=== PATIENT | female | born 1950 | race Caucasian/White ===

== ENCOUNTER 2017-05-01 12:50 | Emergency (ER) | payer OTHER ==
--- NOTE | 2017-05-01 13:21 | EDM.PDOC ---
ED HPI GENERAL MEDICAL PROBLEM - General Chief Complaint: Abdominal Pain Stated Complaint: AMBULANCE Time Seen by Provider: 05/01/17 13:00 - History of Present Illness INITIAL COMMENTS - FREE TEXT/NARRATIVE: HISTORY AND PHYSICAL: History of present illness: Is a 66-year-old white female presents with a concern of right-sided abdominal pain this is in her right upper quadrant and hypogastric she has had multiple episodes of this discomfort and has had extensive workup including HIDA scan CT abdomen and pelvis that have all been unremarkable patient is markedly improved on arrival Review of systems: As per history of present illness and below otherwise all systems reviewed and negative. Past medical history: As per history of present illness and as reviewed below otherwise noncontributory. Surgical history: As per history of present illness and as reviewed below otherwise noncontributory. Social history: No reported history of drug or alcohol abuse. Family history: As per history of present illness and as reviewed below otherwise noncontributory. Physical exam: HEENT: Atraumatic, normocephalic, pupils reactive, negative for conjunctival pallor or scleral icterus, mucous membranes moist, throat clear, neck supple, nontender, trachea midline. Lungs: Clear to auscultation, breath sounds equal bilaterally, chest nontender. Heart: S1S2, regular, negative for clicks, rubs, or JVD. Abdomen: Soft, nondistended, no localized tenderness. Negative for masses or hepatosplenomegaly. Negative for costovertebral tenderness. Pelvis: Stable nontender. Genitourinary: Deferred. Rectal: Deferred. Extremities: Atraumatic, negative for cords or calf pain. Neurovascular unremarkable. Neuro: Awake, alert, oriented. Cranial nerves II through XII unremarkable. Cerebellum unremarkable. Motor and sensory unremarkable throughout. Exam nonfocal. Diagnostics: CBC CMP amylase lipase UA Therapeutics: None Impression: #1 chronic intermittent abdominal pain Definitive disposition and diagnosis as appropriate pending reevaluation and review of above. Right Upper Abdomen Pain Score (Numeric/FACES): 1 - Related Data Allergies Allergy/AdvReac Type Severity Reaction Status Date / Time meperidine [From Demerol] Allergy Vomiting Verified 05/01/17 13:07 Tetanus Vaccines and Toxoid Allergy Other Verified 05/01/17 13:07 Home Meds: Home Meds Furosemide [Lasix] 20 mg PO DAILY 08/31/17 [History] ED ROS GENERAL - Review of Systems Review Of Systems: ROS reveals no pertinent complaints other than HPI. ED EXAM, GENERAL - Physical Exam Exam: See Below (See dictation) Course - Vital Signs Text/Narrative:: Lengthy discussion with patient regarding chronic intermittent nature of this and to date unremarkable diagnostics at this time patient does agree to lab work she declines any imaging states she has markedly improved and is eager for a referral so as to review implications including empiric cholecystectomy and/ or GI consultation Last Recorded V/S: Last Vital Signs Temp 36.3 C 05/01/17 12:58 Pulse 71 05/01/17 12:58 Resp 20 05/01/17 12:58 BP 133/87 05/01/17 12:58 Pulse Ox 95 05/01/17 12:58 - Orders/Labs/Meds Orders: Active Orders 24 hr Category Date Time Status URINALYSIS W/MICROSCOPIC [UA W/MICROSCOPIC] [URIN] Stat Lab 05/01/17 13:05 Uncollected Labs: Laboratory Tests 05/01/17 05/01/17 Range/Units 13:15 13:15 WBC 6.20 (4.0-11.0) K/uL RBC 4.64 (4.30-5.90) M/uL Hgb 13.8 (12.0-16.0) g/dL Hct 40.4 (36.0-46.0) % MCV 87.1 (80.0-98.0) fL MCH 29.7 (27.0-32.0) pg MCHC 34.2 (31.0-37.0) g/dL RDW Std Deviation 42.1 (28.0-62.0) fl RDW Coeff of Mariano 13 (11.0-15.0) % Plt Count 156 (150-400) K/uL MPV 8.80 (7.40-12.00) fL Neut % (Auto) 68.3 (48.0-80.0) % Lymph % (Auto) 24.4 (16.0-40.0) % [place] % (Auto) 5.2 (0.0-15.0) % Eos % (Auto) 1.9 (0.0-7.0) % Baso % (Auto) 0.2 (0.0-1.5) % Neut # (Auto) 4.2 (1.4-5.7) K/uL Lymph # (Auto) 1.5 (0.6-2.4) K/uL [place] # (Auto) 0.3 (0.0-0.8) K/uL Eos # (Auto) 0.1 (0.0-0.7) K/uL Baso # (Auto) 0.0 (0.0-0.1) K/uL Nucleated RBC % 0.0 /100WBC Nucleated RBCs # 0 K/uL Sodium 142 (136-146) mmol/L Potassium 3.7 (3.5-5.1) mmol/L Chloride 107 (98-110) mmol/L Carbon Dioxide 24 (21-31) mmol/L BUN 21 (6.0-23.0) mg/dL Creatinine 1.0 (0.6-1.5) mg/dL Est Cr Clr Drug Dosing 56.58 mL/min Estimated GFR (MDRD) 55.6 ml/min Glucose 91 (60-110) mg/dL Calcium 9.4 (8.8-10.8) mg/dL Total Bilirubin 0.3 (0.1-1.5) mg/dL AST 14 (5-40) IU/L ALT 22 (8-54) IU/L Alkaline Phosphatase 90 (40-150) Total Protein 6.5 (6.0-8.0) g/dL Albumin 4.0 (3.4-4.8) g/dL Globulin 2.5 (2.0-3.5) g/dL Albumin/Globulin Ratio 1.6 (1.3-2.8) Amylase 41 (10-90) U/L Lipase 14 (7-80) U/L Departure - Departure Time of Disposition: 14:23 Disposition: Home, Self-Care 01 Condition: Good Clinical Impression: Abdominal pain - Discharge Information Forms: ED Department Discharge Additional Instructions: The following information is given to patients seen in the emergency department who are being discharged to home. This information is to outline your options for follow-up care. We provide all patients seen in our emergency department with a follow-up referral. The need for follow-up, as well as the timing and circumstances, are variable depending upon the specifics of your emergency department visit. If you don't have a primary care physician on staff, we will provide you with a referral. We always advise you to contact your personal physician following an emergency department visit to inform them of the circumstance of the visit and for follow-up with them and/or the need for any referrals to a consulting specialist. The emergency department will also refer you to a specialist when appropriate. This referral assures that you have the opportunity for followup care with a specialist. All of these measure are taken in an effort to provide you with optimal care, which includes your followup. Under all circumstances we always encourage you to contact your private physician who remains a resource for coordinating your care. When calling for followup care, please make the office aware that this follow-up is from your recent emergency room visit. If for any reason you are refused follow-up, please contact the [facility] emergency department at and asked to speak to the emergency department charge nurse. [facility] Specialty Care - General Surgery Professional [address], [address] [place] [address] Follow-up primary medical doctor and general surgery as discussed call to schedule routine appointments return as needed as discussed - My Orders Last 24 Hours: My Active Orders 05/01/17 13:05 URINALYSIS W/MICROSCOPIC [UA W/MICROSCOPIC] [URIN] Stat - Assessment/Plan Last 24 Hours: My Active Orders 05/01/17 13:05 URINALYSIS W/MICROSCOPIC [UA W/MICROSCOPIC] [URIN] Stat
[2017-05-01 14:40] VITALS: BP 124/78
== END 2017-05-01 14:37 | disposition home or self-care (01) ==
LOC: EDBD 12:50 → MERGE 12:50 → MW.ED 12:50
DX: R10.11 Right upper quadrant pain (principal); Z88.8 Allergy status to other drugs, medicaments and biological substances
CPT/HCPCS: 36415; 80053; 81001; 82150; 83690; 85025; 99283; 99284

== ENCOUNTER 2020-05-01 15:51 | Emergency (ER) | payer MEDICARE, OTHER ==
[2020-05-01] MEDS ORDERED: Sodium Chloride 0.9% 10 ML Syringe FLUSH PRN (15:56)
[2020-05-01] MEDS ORDERED: Sodium Chloride 0.9% 10 ML SDV IV PRN (15:56)
[2020-05-01] MEDS ORDERED: Sodium Chloride 0.9% 2.5 ML Syringe FLUSH PRN (15:56)
--- NOTE | 2020-05-01 16:10 | EDM.PDOC ---
ED [facility] GENERAL MEDICAL PROBLEM - General Chief Complaint: General Stated Complaint: LEFT SIDE NUMBNESS Time Seen by Provider: 05/01/20 15:52 - History of Present Illness INITIAL COMMENTS - FREE TEXT/NARRATIVE: HISTORY AND PHYSICAL: History of present illness: 70-year-old female without significant past medical history presents to the emergency department with a sudden onset of right-sided weakness, paresthesias, and difficulty with speaking. She states that last time known well was around 9 AM. The symptoms resolved by about 11 AM. She got 1 to come to the hospital because of the distance that she would have to travel. She was concerned and had called her daughter who stated she sounded like she had a bag full of marbles in her mouth when she was speaking. This is since resolved. She has a normal gait when walking into the emergency department. No headache. Review of systems: A 10-point review of systems, other than pertinent positives and negatives as stated per HPI, is otherwise negative. Past medical history: As per history of present illness and as reviewed below otherwise noncontributory. Surgical history: As per history of present illness and as reviewed below otherwise noncontributory. Social history: No reported history of drug or alcohol abuse. Family history: As per history of present illness and as reviewed below otherwise noncontributory. Physical exam: VITAL SIGNS: Reviewed. GENERAL: Anxious about her condition but in no apparent distress HEAD: No signs of head trauma. EYES: Pupils are equal. Extraocular motions intact. EARS: Hearing grossly intact. MOUTH: Oropharynx is normal. NECK: No adenopathy, no JVD. CHEST: Chest with clear breath sounds bilaterally. No wheezes, rales, or rhonchi. CARDIAC: Regular rate and rhythm. Normal S1 and S2, without murmurs, gallops, or rubs. VASCULAR: Peripheral pulses normal and equal in all extremities. ABDOMEN: Soft, without detectable tenderness. No sign of distention. No rebound or guarding, and no masses palpated. MUSCULOSKELETAL: Good range of motion of all major joints. Extremities without clubbing, cyanosis or edema. NEUROLOGIC EXAM: Alert and oriented x 3. No focal sensory or motor deficits. Speech normal. Follows commands. Normal gait. Cranial nerves II through XII are intact. PSYCHIATRIC: Mood normal. SKIN: No rash or lesions. Initial Differential Diagnosis & Plan: Stroke, TIA, hypertensive emergency, intracranial hemorrhage, mass lesion MRI is immediately available if the go there now. Given the presentation I do not suspect that head CT will show underlying intracranial hemorrhage. She is outside the 4.5-hour window for thrombolytics and has essentially resolved symptoms. Minor right-sided arm and leg paresthesia but no weakness. Her speech has resolved and she can say "the sun is shining in [place]" without any difficulty and no obvious slurring. NIH scale is 0. Labs, MRI, reevaluate. Definitive disposition and diagnosis as appropriate pending reevaluation and review of above. right shoulder Pain Score (Numeric/FACES): 3 - Related Data Allergies Allergy/AdvReac Type Severity Reaction Status Date / Time meperidine [From Demerol] Allergy Vomiting Verified 05/01/20 15:53 meperidine HCl [From Demerol] Allergy Vomiting Verified 05/01/20 15:53 tetanus toxoid, adsorbed Allergy Anaphylactic Verified 05/01/20 15:53 Shock Tetanus Vaccines and Toxoid Allergy Other Verified 05/01/20 15:53 Home Meds: Home Meds Moexipril HCl [Moexipril] 15 mg PO ACBREAKFAST 05/25/15 [History] Omeprazole 20 mg PO DAILY 05/25/15 [History] clonazePAM [Clonazepam] 1 mg PO ASDIRECTED PRN 05/25/15 [History] Furosemide [Lasix] 40 mg PO DAILY 05/01/17 [History] Aspirin [Aspirin EC] 325 mg PO QAM #60 tablet. 05/01/20 [Rx] Past Medical History - Past Health History Medical/Surgical History: Denies Medical/Surgical History HEENT History: Reports: None Cardiovascular History: Reports: Hypertension Other Cardiovascular History: History of heart tests due to family history, Echocardiogram, ? CAT scan all negative 'about 5 yrs ago' Respiratory History: Reports: None Gastrointestinal History: Reports: Other (See Below) Other Gastrointestinal History: Esophagitis Genitourinary History: Reports: None SCHEDULING AGENT History: Reports: Other (See Below) Other SCHEDULING AGENT History: Laparoscopy did not indicate findings Musculoskeletal History: Reports: None Neurological History: Reports: Other (See Below) Other Neuro History: No migraines for several years, "Stress headaches almost daily" Psychiatric History: Reports: None Endocrine/Metabolic History: Reports: None Other Endocrine/Metabolic History: Hypoglycemia Hematologic History: Reports: None Immunologic History: Reports: None Oncologic (Cancer) History: Reports: None Dermatologic History: Reports: None - Infectious Disease History Infectious Disease History: Reports: Chicken Pox - Past Surgical History Head Surgeries/Procedures: Reports: None HEENT Surgical History: Reports: None Cardiovascular Surgical History: Reports: None Respiratory Surgical History: Reports: None GI Surgical History: Reports: None Female Surgical History: Reports: Tubal Ligation Other Female Surgeries/Procedures: laparoscopic tubal ligation Endocrine Surgical History: Reports: None Musculoskeletal Surgical History: Reports: Other (See Below) Oncologic Surgical History: Reports: None Dermatological Surgical History: Reports: None Social & Family History - Family History Family Medical History: Noncontributory - Tobacco Use Smoking Status *Q: Never Smoker Second Hand Smoke Exposure: No - Caffeine Use Caffeine Use: Reports: None - Recreational Drug Use Recreational Drug Use: No ED ROS GENERAL - Review of Systems Review Of Systems: See Below (noted) ED EXAM, GENERAL - Physical Exam Exam: See Below (noted) EKG INTERPRETATION EKG Interpretation Comments: 12 lead EKG interpretation Obtained: May 01, 2020 at 4:48 PM Rhythm: Sinus Rate: 68 [place]: Normal Intervals: Normal ST/T Segments: No acute ischemic changes Interpretation: Sinus Rhythm Course - Vital Signs Last Recorded V/S: Last Vital Signs Temp 97.1 F 05/01/20 15:53 Pulse 86 05/01/20 15:53 Resp 18 05/01/20 15:53 BP 183/96 H 05/01/20 15:53 Pulse Ox 95 05/01/20 15:53 - Orders/Labs/Meds Orders: Active Orders 24 hr Category Date Time Status Assess Neurological Status [RC] ASDIRECTED Care 05/01/20 15:56 Active Cardiac Monitoring [RC] . DIRECTED Care 05/01/20 15:56 Active EKG Documentation Completion [RC] STAT Care 05/01/20 15:56 Active Height and Weight [RC] UPON Care 05/01/20 15:56 Active NIH Stroke Scale [RC] ASDIRECTED Care 05/01/20 15:56 Active Nursing Bedside Swallow Screen [RC] ASDIRECTED Care 05/01/20 15:56 Active Sodium Chloride 0.9% [Normal Saline] Med 05/01/20 15:56 Active 10 ml IV ASDIRECTED PRN Sodium Chloride 0.9% [Saline Flush] Med 05/01/20 15:56 Active 10 ml FLUSH ASDIRECTED PRN Sodium Chloride 0.9% [Saline Flush] Med 05/01/20 15:56 Active 2.5 ml FLUSH ASDIRECTED PRN Peripheral IV Insertion Adult [OM.PC] Stat Ot 05/01/20 15:56 Ordered Peripheral IV Insertion Adult [OM.PC] Stat Ot 05/01/20 15:56 Ordered Medication Orders Sodium Chloride (Saline Flush) 10 ml FLUSH ASDIRECTED PRN PRN Reason: Keep Vein Open Sodium Chloride (Saline Flush) 2.5 ml FLUSH ASDIRECTED PRN PRN Reason: Keep Vein Open Sodium Chloride (Normal Saline) 10 ml IV ASDIRECTED PRN PRN Reason: IV Use Labs: Laboratory Tests 05/01/20 05/01/20 05/01/20 Range/Units 16:02 16:02 16:02 WBC 5.94 (4.0-11.0) K/uL RBC 4.87 (4.30-5.90) M/uL Hgb 14.3 (12.0-16.0) g/dL Hct 42.7 (36.0-46.0) % MCV 87.7 (80.0-98.0) fL MCH 29.4 (27.0-32.0) pg MCHC 33.5 (31.0-37.0) g/dL RDW Std Deviation 41.4 (28.0-62.0) fl RDW Coeff of Mariano 13 (11.0-15.0) % Plt Count 166 (150-400) K/uL MPV 8.70 (7.40-12.00) fL Neut % (Auto) 57.6 (48.0-80.0) % Lymph % (Auto) 33.5 (16.0-40.0) % [place] % (Auto) 6.7 (0.0-15.0) % Eos % (Auto) 1.9 (0.0-7.0) % Baso % (Auto) 0.3 (0.0-1.5) % Neut # (Auto) 3.4 (1.4-5.7) K/uL Lymph # (Auto) 2.0 (0.6-2.4) K/uL [place] # (Auto) 0.4 (0.0-0.8) K/uL Eos # (Auto) 0.1 (0.0-0.7) K/uL Baso # (Auto) 0.0 (0.0-0.1) K/uL Nucleated RBC % 0.0 /100WBC Nucleated RBCs # 0 K/uL INR 1.08 APTT 23.2 (18.6-31.3) SEC Sodium 142 (136-145) mmol/L Potassium 3.9 (3.5-5.1) mmol/L Chloride 105 (98-107) mmol/L Carbon Dioxide 27.6 (21.0-32.0) mmol/L BUN 19 H (7.0-18.0) mg/dL Creatinine 1.2 H (0.6-1.0) mg/dL Est Cr Clr Drug Dosing 45.26 mL/min Estimated GFR (MDRD) 44.7 ml/min Glucose 91 (74-106) mg/dL Calcium 9.1 (8.5-10.1) mg/dL Total Bilirubin 0.3 (0.2-1.0) mg/dL AST 12 L (15-37) IU/L ALT 25 (14-63) IU/L Alkaline Phosphatase 106 (46-116) U/L Troponin I < 0.050 (0.000-0.056) ng/mL Total Protein 6.9 (6.4-8.2) g/dL Albumin 4.2 (3.4-5.0) g/dL Globulin 2.7 (2.6-4.0) g/dL Albumin/Globulin Ratio 1.6 (0.9-1.6) TSH 3rd Generation 2.90 (0.36-3.74) uIU/mL Meds: Medications Generic Name Dose Route Start Last Admin Trade Name Freq PRN Reason Stop Dose Admin Sodium Chloride 10 ml 05/01/20 15:56 Saline Flush FLUSH ASDIRECTED PRN Keep Vein Open Sodium Chloride 2.5 ml 05/01/20 15:56 Saline Flush FLUSH ASDIRECTED PRN Keep Vein Open Sodium Chloride 10 ml 05/01/20 15:56 Normal Saline IV ASDIRECTED PRN IV Use - Re-Assessments/Exams Free Text/Narrative Re-Assessment/Exam: 05/01/20 17:09 Follow-up symptoms. Outside stroke window for TPA. Given both of these facts TPA not indicated. Patient has an MRI without any acute findings and no evidence of acute ischemic stroke. This likely represents a TIA or other transient neurologic defect. I will have her start daily aspirin and follow-up with her doctor for risk factor modification and treatment. My diagnostic impression 1. TIA; negative MRI 2. Transient neurologic symptoms; resolved 325 aspirin daily. Departure - Departure Time of Disposition: 17:10 Disposition: Home, Self-Care 01 Clinical Impression: TIA (transient ischemic attack) - Discharge Information *PRESCRIPTION DRUG MONITORING PROGRAM REVIEWED*: Not Applicable *COPY OF PRESCRIPTION DRUG MONITORING REPORT IN PATIENT JAIRON: Not Applicable Forms: ED Department Discharge Additional Instructions: The following information is given to patients seen in the emergency department who are being discharged to home. This information is to outline your options for follow-up care. We provide all patients seen in our emergency department with a follow-up referral. The need for follow-up, as well as the timing and circumstances, are variable depending upon the specifics of your emergency department visit. If you don't have a primary care physician on staff, we will provide you with a referral. We always advise you to contact your personal physician following an emergency department visit to inform them of the circumstance of the visit and for follow-up with them and/or the need for any referrals to a consulting specialist. The emergency department will also refer you to a specialist when appropriate. This referral assures that you have the opportunity for follow-up care with a specialist. All of these measure are taken in an effort to provide you with optimal care, which includes your follow-up. Thank you for coming to the [facility] urgency department for your care today. It was Dr. Bess's pleasure to take care of you. [facility] - Primary Care [address] [place] [id number] [address] [address] Please follow-up with your doctor for further risk factor modification and additional testing as indicated. Please return to the emergency department for additional symptoms. We are always happy to see you. Under all circumstances we always encourage you to contact your private physician who remains a resource for coordinating your care. When calling for follow-up care, please make the office aware that this follow-up is from your recent emergency room visit. If for any reason you are refused follow-up, please contact the [facility] Emergency Department at and asked to speak to the emergency department charge nurse. Sepsis Event Note (ED) - Evaluation Sepsis Screening Result: No Definite Risk - Focused Exam Vital Signs: Vital Signs Temp Pulse Resp BP Pulse Ox 05/01/20 15:53 97.1 F 86 18 183/96 H 95 - My Orders Last 24 Hours: My Active Orders 05/01/20 15:56 Assess Neurological Status [RC] ASDIRECTED Cardiac Monitoring [RC] . DIRECTED EKG Documentation Completion [RC] STAT Height and Weight [RC] UPON NIH Stroke Scale [RC] ASDIRECTED Nursing Bedside Swallow Screen [RC] ASDIRECTED Sodium Chloride 0.9% [Normal Saline] 10 ml IV ASDIRECTED PRN Sodium Chloride 0.9% [Saline Flush] 10 ml FLUSH ASDIRECTED PRN Sodium Chloride 0.9% [Saline Flush] 2.5 ml FLUSH ASDIRECTED PRN Peripheral IV Insertion Adult [OM.PC] Stat Peripheral IV Insertion Adult [OM.PC] Stat - Assessment/Plan Last 24 Hours: My Active Orders 05/01/20 15:56 Assess Neurological Status [RC] ASDIRECTED Cardiac Monitoring [RC] . DIRECTED EKG Documentation Completion [RC] STAT Height and Weight [RC] UPON NIH Stroke Scale [RC] ASDIRECTED Nursing Bedside Swallow Screen [RC] ASDIRECTED Sodium Chloride 0.9% [Normal Saline] 10 ml IV ASDIRECTED PRN Sodium Chloride 0.9% [Saline Flush] 10 ml FLUSH ASDIRECTED PRN Sodium Chloride 0.9% [Saline Flush] 2.5 ml FLUSH ASDIRECTED PRN Peripheral IV Insertion Adult [OM.PC] Stat Peripheral IV Insertion Adult [OM.PC] Stat
[2020-05-01 16:36] LABS: BLOOD UREA NITROGEN,BUN 19 mg/dL (7.0-18.0); CARBON DIOXIDE,CO2 27.6 mmol/L (21.0-32.0); CHLORIDE,CL 105 mmol/L (98-107); GLUCOSE RANDOM 91 mg/dL (74-106); POTASSIUM,K 3.9 mmol/L (3.5-5.1); SODIUM,NA 142 mmol/L (136-145)
--- NOTE | 2020-05-01 17:07 | MR ---
Indication: : Right-sided stroke symptoms Comparison: : MRI head with and without contrast 01/22/2012 Technique: : Multiplanar multisequence magnetic resonance imaging of the brain performed without intravenous contrast. Performed sequences are sagittal T1 3D BrainView with multiplanar reconstructions, axial T2, axial FLAIR, axial DWI with ADC map, and axial SWI. FINDINGS: There is no intracranial hemorrhage, edema, or mass effect. There is no diffusion restriction to indicate acute infarct. There is mild cerebral volume loss with compensatory prominence of the cerebral sulci. A few small T2 hyperintense foci scattered in the bilateral cerebral white matter are nonspecific and most likely represent mild chronic microvascular ischemic changes. There is normal size of the ventricles. The basal cisterns patent. The major intracranial vascular flow voids are preserved. The orbital contents are unremarkable. IMPRESSION: 1. No acute intracranial process. No evidence of ischemic infarct. 2. Mild cerebral volume loss and chronic microvascular ischemic change. Dictated by Khadar Reynolds MD @ May 01 2020 4:56PM Signed by Dr. Khadar Reynolds @ May 01 2020 5:06PM
[2020-05-01 20:29] VITALS: BP 161/82; PULSE 79
== END 2020-05-01 17:40 | disposition home or self-care (01) ==
LOC: MW.ED 15:51
DX: G45.9 Transient cerebral ischemic attack, unspecified (principal); I10 Essential (primary) hypertension; Z88.7 Allergy status to serum and vaccine; Z88.5 Allergy status to narcotic agent; Z79.899 Other long term (current) drug therapy
CPT/HCPCS: 36415; 70551; 70551-26; 80053; 84443; 84484; 85025; 85610; 85730; 93005; 99283; 99285-25